=== PATIENT | male | born 1975 | race Caucasian/White ===

== ENCOUNTER 2016-10-29 10:42 | Inpatient (IN) | payer BC ==
[2016-10-24 17:12] LABS: BASOPHILS 0.8 %; BASOPHILS ABSOLUTE 0.05 10/3/uL (0.0-0.16); EOSINOPHILS 5.5 %; EOSINOPHILS ABSOLUTE 0.36 10/3/uL (0.0-0.53); HEMATOCRIT 43.7 % (40.0-51.0); HEMOGLOBIN 15.1 g/dL (13.6-17.8); IMMATURE GRANULOCYTES 0.2 %; IMMATURE GRANULOCYTES ABSOLUTE 0.01 10/3/uL (0.0-0.11); LYMPHOCYTES 28.5 %; LYMPHOCYTES ABSOLUTE 1.86 10/3/uL (0.67-4.30); MEAN CORPUS HGB CONC 34.6 g/dL (32.0-36.0); MEAN CORPUSCULAR HEMOGLOB 32.6 pg (26.0-34.0); MEAN CORPUSCULAR VOLUME 94.4 fL (80-100); MEAN PLATELET VOLUME 10.3 fL (9.2-13.0); MONOCYTES ABSOLUTE 0.39 10/3/uL (0.21-1.20); NEUTROPHILS ABSOLUTE 3.86 10/3/uL (2.02-8.40); PLATELET COUNT 221 10/3/uL (150-400); RBC DISTRIBUTION WIDTH 12.1 % (12.0-16.0); RED CELL COUNT 4.63 10/6/uL (4.7-6.1); WHITE BLOOD CELLS 6.5 10/3/uL (4.5-10.5)
[2016-10-24 17:15] LABS: MANUAL DIFF NO %
[2016-10-24 17:36] LABS: A/G RATIO 1.9 (0.7-1.9); ALBUMIN 4.4 G/DL (3.5-5.0); ALKALINE PHOSPHATASE 61 U/L (45-117); BUN (BLOOD UREA NITROGEN) 12 MG/DL (6-23); CALCIUM, SERUM 9.4 MG/DL (8.5-10.4); CHLORIDE, SERUM 106 MMOL/L (96-112); CO2 (CARBON DIOXIDE) 34 MMOL/L (24-34); CREATININE 0.94 MG/DL (0.70-1.30); GFR AFRICAN AMERICAN 115 ML/MIN (>=60); GFR NON AFRICAN AMERICAN 100 ML/MIN (>=60); GLOBULIN 2.3 G/DL (2.5-4.1); GLUCOSE, SERUM 103 MG/DL (60-99); SGOT(AST) 32 U/L (5-40); SGPT(ALT) 35 U/L (5-65); SODIUM, SERUM 145 MMOL/L (135-148); TOTAL BILIRUBIN 0.3 MG/DL (0-1.2); TOTAL PROTEIN 6.7 G/DL (6.0-8.5)
[2016-10-24 19:06] LABS: ASCORBIC ACID (UR NOT ORDER) NEG (NEG); BILIRUBIN, URINE NEGATIVE (NEG); KETONE, URINE NEGATIVE (NEG); LEUKOCYTE ESTERASE(NOT OR NEG (NEG); WBC (NOT ORDERED) (RFLEX) < 1 (0-5)
--- NOTE | ~2016-10-29 | OP ---
Record Of Operation [facility] [address] [place]. [address] NAME: THAI FREEMAN : 73 STATUS : ADM IN PAT#: [id number] AGE: 41 ADM/REG DATE : 10/29/16 MR#: [id number] REPORT SERV DATE: 10/29/16 DICTATED BY: JOSE CASTRO III DATE: 10/29/16 REPORT STATUS : Draft TRANSCRIBED BY: MODL DATE: 10/29/16 DATE OF PROCEDURE: 10/29/2016 PREOPERATIVE DIAGNOSIS: Advanced osteoarthritis, left knee. POSTOPERATIVE DIAGNOSIS: Advanced osteoarthritis, left knee. SURGICAL PROCEDURE PERFORMED: Left total knee arthroplasty using the DePuy Attune system with a size 5 femoral component, size 5 tibial tray, a +5 polyethylene insert, a 35 mm patella, posterior stabilized. SURGEON: Jose Castro M.D. STUMMEL SELECTOR: Senthil. ANESTHESIA: General. ANTIBIOTICS: Vancomycin 1 g and gentamicin 320 mg. DRAINS: Hemovac x1. FLUIDS: Crystalloids 500 mL. ESTIMATED BLOOD LOSS: 150 mL. TOURNIQUET TIME: 42 minutes. COMPLICATIONS: None. Tranexamic acid 2 g. PROCEDURE IN DETAIL: The patient was brought to the operative room, placed on the table in supine position and general anesthesia was induced. Antibiotics were administered intravenously in the operating room. Pneumatic tourniquet was applied to the left upper thigh. Left lower extremity was prepped and draped in the usual sterile fashion, and after a surgical time-out, it was exsanguinated with a 6-inch Esmarch and tourniquet was inflated to 350 mmHg. Assuring anesthesia, a standard midline incision was made directly over the left knee followed by a medial arthrotomy. The patella was everted and the knee was flexed to 90 degrees. Medial and lateral menisci were debrided along the anterior cruciate ligament. A 5-mm step drill was used to enter the femoral canal and the intramedullary guide was placed on 5 degrees valgus for left knee. This was pinned to distal femur and the intramedullary guide was removed. Distal femoral cut was made with the oscillating saw removing 9 mm of distal femur. The distal femur was trialed to a size 5 femoral component, marked along the epicondylar axis. Multi-cutting guide was placed in these angulo, pinned to the distal femur. The anterior and posterior cuts were made along with the angled chamfer cuts. The intercondylar cutting guide was next centered and pinned to the distal femur. A Record Of Operation [place] [address] [place]. [address] NAME: THAI FREEMAN : 73 STATUS : ADM IN PAT#: [id number] AGE: 41 ADM/REG DATE : 10/29/16 MR#: [id number] REPORT SERV DATE: 10/29/16 DICTATED BY: JOSE CASTRO III DATE: 10/29/16 REPORT STATUS : Draft TRANSCRIBED BY: MODL DATE: 10/29/16 reciprocating saw was used to make this cut with the posterior stabilized system. Trial reduction was carried out noting good cuts in all planes. Attention was turned towards the tibial side. The external tibial cutting guide was aligned with the second metatarsal ray and pinned to the proximal tibia. Oscillating saw was used to make this cut with a neutral degree cutting block. Trial reduction was carried out with a size 5 tibial baseplate and a +5 polyethylene insert. Relaxation of the deep medial collateral ligament was carried out for ligamentous balancing purposes. The undersurface of the patella was prepared by transecting 9 to 10 mm of bone. A 35 mm patellar template was used to place three anchor holes in the undersurface of the patella. The tibia was prepared with a drill and a punch. The old graft material was removed from his previous ACL surgery. The medial tibial plateau was drilled with a small drill because it was a hard bone. Two packs of methylmethacrylate were vacuum mixed, pressurized in the good dry cancellous bone. The real components were placed. Excess cement was removed. Tourniquet was released after 42 minutes. Bleeding was controlled with Bovie electrocautery. Thorough irrigation was carried out throughout the procedure pulse lavage system. One medium-sized Hemovac drain was placed to the wound. Medial arthrotomy was closed with #2 Ethibond suture and #1 Vicryl suture in 90 degree flexed position. Subcutaneous tissue was closed with 2-0 Vicryl and skin was closed using running 4-0 Monocryl. Benzoin and Steri-Strips were applied, followed by an Aquacel dressing. The patient tolerated the procedure well and brought to recovery room in satisfactory condition. TB/BRITNEYL Jose Castro III, M.D. / [id number] CC: Jose Castro III, M.D.
--- NOTE | ~2016-10-29 | HP ---
History And Physical [address] [address] NAME: THAI FREEMAN : 73 STATUS : ADM IN PAT#: [id number] AGE: 41 ADM/REG DATE : 10/29/16 MR#: [id number] REPORT SERV DATE: 10/29/16 DICTATED BY: JOSE CASTRO III DATE: 10/29/16 REPORT STATUS : Draft TRANSCRIBED BY: MODL DATE: 10/29/16 DATE OF ADMISSION: 10/29/2016 CHIEF COMPLAINT: Left knee pain. HISTORY: The patient is a 41-year-old white male who has had multiple left knee surgeries including two ACL reconstructions, the last one done on 08/16/2014, who has had persistent pain in his left knee. His original ACL surgery was with a bone patella tendon allograft on 03/13/[address] Zelalem Wolff. He also had meniscal surgery as well. He has had several cortisone injections as well as five Synvisc injections, all without significant relief of his pain to his left knee. X-rays reveals degenerative changes of his left knee with bone tunnels consistent with ACL reconstruction and he is admitted for left total knee arthroplasty. Risks, benefits, and expected outcomes have been explained, but not limited to blood clots, infection, neurovascular injuries, patella maltracking problems, and component failures. PAST MEDICAL HISTORY: Negative for high blood pressure; diabetes; liver, lung, or kidney problems. PAST SURGICAL HISTORY: Previous surgeries include three ACL surgeries to his left knee and left knee arthroscopy. MEDICATIONS: Include [id number]-[id number] anti-inflammatories as tolerated. ALLERGIES: PENICILLIN AND SOME NONSTEROIDAL ANTI-INFLAMMATORIES. SOCIAL HISTORY: Nonsmoker and nondrinker. PHYSICAL EXAMINATION: GENERAL: He is alert and oriented x3. VITAL SIGNS: Stable. HEENT: Normocephalic and atraumatic. Pupils are equal, round, and reactive to light and accommodation. Extraocular muscles are intact. NECK: Supple. CHEST: Clear. HEART: Regular rate and rhythm without murmur. ABDOMEN: Benign, soft, and nontender. Positive bowel sounds. ORTHOPEDIC: Reveals good range of motion 0-140 degrees. He is tender to the medial femoral condyle and the medial joint line, particularly in flexion past 20 degrees. He has negative Marcie's and mild glide. He has some tenderness with valgus stress, 1+ varus and valgus stress. Nontender to the patellofemoral joint. DIAGNOSTIC DATA: X-rays reveal some medial compartment osteoarthritis with ACL tunnels consistent with reconstruction. MRI done on 07/06/2016 reveals focal full thickness cartilage loss, central weightbearing surface of the medial femoral condyle, and moderate reactive subchondral bone marrow edema with an intact ACL graft. History And Physical [address] [address] NAME: THAI FREEMAN : 73 STATUS : ADM IN [facility]#: [id number] AGE: 41 ADM/REG DATE : 10/29/16 MR#: [id number] REPORT SERV DATE: 10/29/16 DICTATED BY: JOSE CASTRO III DATE: 10/29/16 REPORT STATUS : Draft TRANSCRIBED BY: FAITH DATE: 10/29/16 PLAN: Admission for left total knee arthroplasty. TB/FAITH Jose Castro III, M.D. / [id number] CC: Jose Castro III, M.D.
[~2016-10-29 10:42] MED LIST: ASAEC PO; FIORINALC PO; NORCO1 TA1 PO; ULTRAM50 PO; ZANTAC 150 PO
[2016-10-30 04:23] LABS: HEMATOCRIT 36.1 % (40.0-51.0); HEMOGLOBIN 12.5 g/dL (13.6-17.8)
[2016-10-30] MEDS ORDERED: PERCOCET 10/3251 TAB PO (14:50)
[2016-10-30] MEDS ORDERED: ELIQUIS 2.5 MG2.5 MG PO (14:50)
[2016-11-28] MEDS ORDERED: ASAB PO (10:23)
== END 2016-10-30 16:49 | disposition home or self-care (01) | DRG 470 ==
LOC: SDC/OF 10:42 → PACU 15:13 → 3JRC 16:13
PROVIDERS: Orthopaedic Surgery
PROC: 3E0T3CZ (ICD-10-PCS; 2016-10-29)
PROC: 0SRD0J9 Replacement of Left Knee Joint with Synthetic Substitute, Cemented, Open Approach (ICD-10-PCS; principal; 2016-10-29 12:30)
DX: M17.12 Unilateral primary osteoarthritis, left knee (principal)
CPT/HCPCS: 36415; 80053; 81001; 85014; 85018; 85025; 85610; 85730; 86850; 86900; 86901; 87641; 88305; 88311; 93005; 97110-GP; 97116-GP; 97161-GP; 97165-GO; A9270-GY; C1776; J1170; J1580; J1885; J2250; J2270; J2405; J2710; J2795; J3010; J3370

== ENCOUNTER 2016-11-08 17:10 | Observation (INO) | payer BC ==
--- NOTE | ~2016-11-08 | HP ---
History And Physical [place] [address] [facility] [place]. [address] NAME: THAI FREEMAN : 73 STATUS : ADM IN [facility]#: [id number] AGE: 41 ADM/REG DATE : 11/08/16 MR#: [id number] REPORT SERV DATE: 11/09/16 DICTATED BY: JOSE CASTRO III DATE: 11/09/16 REPORT STATUS : Draft TRANSCRIBED BY: MODKyrie DATE: 11/09/16 DATE OF ADMISSION: 11/08/2016 23-HOUR OBSERVATION CHIEF COMPLAINT: Left knee pain. HISTORY: The patient is a 41-year-old white male, who previously underwent a left total knee arthroplasty here at [facility] on 10/29/2016 with a nice result. He was doing well until he presented to the office on 11/08/2016 in severe pain with his left knee. He was noted to have a large hematoma in his left knee and he has been on anticoagulation Eliquis 2.5 mg twice a day. The patient did initially have a drain at the initial procedure. He is now admitted for incision and drainage of the left hematoma. PAST MEDICAL HISTORY: Negative for high blood pressure, diabetes, liver, lung, or kidney problems. PREVIOUS SURGERIES: Include multiple left knee surgeries including three ACL surgeries and left total knee arthroplasty on 10/29/2016. ALLERGIES: PENICILLIN. MEDICATIONS: Please see the MAR. PHYSICAL EXAMINATION: GENERAL: He is alert and oriented x3. VITAL SIGNS: Stable. HEENT: Normocephalic, atraumatic. Pupils are equal, round, and reactive to light and accommodation. Extraocular muscles are intact. NECK: Supple. CHEST: Clear. HEART: Regular rate and rhythm. ABDOMEN: Benign, soft, nontender. Positive bowel sounds. ORTHOPEDIC: Examination reveals marked tenderness to his left knee. There is no erythema, no warmth. There is a large effusion to his left knee. He has restricted range of motion 0 to 40 degrees. There are no signs of infection. A needle aspirational was attempted, but no fluid was removed secondary to clotted blood. ASSESSMENT: Hematoma of the left knee following total knee arthroplasty. PLAN: Incision and drainage of hematoma of the left knee. JAMIE/FAITH History And Physical [place] [address] [place]. [address] NAME: THAI FREEMAN : 73 STATUS : ADM IN PAT#: [id number] AGE: 41 ADM/REG DATE : 11/08/16 MR#: [id number] REPORT SERV DATE: 11/09/16 DICTATED BY: JOSE CASTRO III DATE: 11/09/16 REPORT STATUS : Draft TRANSCRIBED BY: MODL DATE: 11/09/16 Jose Castro III, M.D. / [id number] CC: RYAN ROE
--- NOTE | ~2016-11-08 | OP ---
Record Of Operation [facility] [address] [place]. [address] NAME: THAI FREEMAN : 73 STATUS : ADM IN PAT#: [id number] AGE: 41 ADM/REG DATE : 11/08/16 MR#: [id number] REPORT SERV DATE: 11/09/16 DICTATED BY: JOSE CASTRO III DATE: 11/09/16 REPORT STATUS : Draft TRANSCRIBED BY: MODL DATE: 11/09/16 DATE OF PROCEDURE: 11/09/2016 PREOPERATIVE DIAGNOSIS: Hematoma, following left total knee arthroplasty. POSTOPERATIVE DIAGNOSIS: Hematoma, following left total knee arthroplasty. SURGICAL PROCEDURE PERFORMED: Incision and drainage of hematoma, left knee with placement of Hemovac drain. SURGEON: Jose Castro M.D. ANESTHESIOLOGY MEDICAL DOCTOR: Coreen. ANESTHESIA: General LMA. ANTIBIOTICS: Ancef 2 g. COMPLICATIONS: None. TOURNIQUET TIME: 8 minutes. PROCEDURE IN DETAIL: The patient was brought to the operative room, placed on the table in supine position, and general anesthesia was induced with an LMA. Pneumonic tourniquet was applied to the left upper thigh. Left lower extremity was prepped and draped in the usual sterile fashion. Assuring good anesthesia and after occult time-out by the circulating nurse, it was exsanguinated and tourniquet was inflated to 300 mmHg. At this point, a small stab wound was made on the lateral side of the patella. A suction was pushed into the small arthrotomy and old clotted blood was removed approximately 120 mL to 150 mL. It was irrigated with sterile normal saline using a 3 L bag with a wand. The tourniquet was then released. There was some oozing in the joint and it continued to bleed a little bit, so a medium-sized Hemovac drain was placed in the knee. The small arthrotomy was closed with 0 Vicryl to the lateral retinaculum and 2-0 Vicryl to the subcutaneous tissue and 4-0 Monocryl for the skin. Benzoin Steri-Strips were applied, followed by sterile compressive dressings. The patient tolerated the procedure well and brought to recovery in satisfactory condition. There were no intraoperative, postoperative, or anesthetic complications. All instrument, needle, sponge, and lap counts were correct. TB/FAITH Jose Castro III, M.D. / [id number] Record Of Operation [place] [address] [place] [address] NAME: THAI FREEMAN : 73 STATUS : ADM IN PAT#: [id number] AGE: 41 ADM/REG DATE : 11/08/16 MR#: [id number] REPORT SERV DATE: 11/09/16 DICTATED BY: JOSE CASTRO III DATE: 11/09/16 REPORT STATUS : Draft TRANSCRIBED BY: FAITH DATE: 11/09/16 CC: Jennifer Miller
[~2016-11-08 17:10] MED LIST changes: +ELIQUIS 2.5 MG2.5 MG PO; +PERCOCET 10/3251 TAB PO
[2016-11-08 21:09] LABS: BASOPHILS 0.1 %; BASOPHILS ABSOLUTE 0.02 10/3/uL (0.0-0.16); EOSINOPHILS 0.3 %; EOSINOPHILS ABSOLUTE 0.04 10/3/uL (0.0-0.53); HEMATOCRIT 32.5 % (40.0-51.0); HEMOGLOBIN 10.8 g/dL (13.6-17.8); IMMATURE GRANULOCYTES 0.5 %; IMMATURE GRANULOCYTES ABSOLUTE 0.07 10/3/uL (0.0-0.11); LYMPHOCYTES 7.5 %; LYMPHOCYTES ABSOLUTE 1.03 10/3/uL (0.67-4.30); MEAN CORPUS HGB CONC 33.2 g/dL (32.0-36.0); MEAN CORPUSCULAR HEMOGLOB 31.4 pg (26.0-34.0); MEAN CORPUSCULAR VOLUME 94.5 fL (80-100); MEAN PLATELET VOLUME 9.3 fL (9.2-13.0); MONOCYTES 6.7 %; MONOCYTES ABSOLUTE 0.92 10/3/uL (0.21-1.20); NEUTROPHILS 84.9 %; NEUTROPHILS ABSOLUTE 11.66 10/3/uL (2.02-8.40)
[2016-11-08 21:10] LABS: MANUAL DIFF NO %; PLATELET COUNT 395 10/3/uL (150-400); RED CELL COUNT 3.44 10/6/uL (4.7-6.1); WHITE BLOOD CELLS 13.7 10/3/uL (4.5-10.5)
[2016-11-08 21:20] LABS: BUN (BLOOD UREA NITROGEN) 10 MG/DL (6-23); CALCIUM, SERUM 9.1 MG/DL (8.5-10.4); CHLORIDE, SERUM 100 MMOL/L (96-112); CO2 (CARBON DIOXIDE) 31 MMOL/L (24-34); CREATININE 0.86 MG/DL (0.70-1.30); GFR AFRICAN AMERICAN 124 ML/MIN (>=60); GFR NON AFRICAN AMERICAN 107 ML/MIN (>=60); POTASSIUM, SERUM 3.7 MMOL/L (3.5-5.3); SODIUM, SERUM 139 MMOL/L (135-148)
[2016-11-08 21:22] LABS: GLUCOSE, SERUM 135 MG/DL (60-99)
[2016-11-08] MEDS ORDERED: ELIQUIS 2.5 MG2.5 MG PO (22:17)
[2016-11-08] MEDS ORDERED: FIORINALC PO (22:18)
[2016-11-08] MEDS ORDERED: PERCOCET 10/3251 TAB PO (22:18)
[2016-11-08] MEDS ORDERED: DSS PO (22:19)
[2016-11-08] MEDS ORDERED: PEP20 PO (22:19)
[2016-11-08] MEDS ORDERED: ULTRAM50 PO (22:19)
[2016-11-28] MEDS ORDERED: ASAB PO (10:23)
== END 2016-11-09 16:40 | disposition home or self-care (01) ==
LOC: CDU1 17:10
PROVIDERS: Orthopaedic Surgery
PROC: 0S9D0ZZ Drainage of Left Knee Joint, Open Approach (ICD-10-PCS; principal; 2016-11-09 08:45)
DX: M96.840 Postprocedural hematoma of a musculoskeletal structure following a musculoskeletal system procedure (principal); Z96.652 Presence of left artificial knee joint; Z88.0 Allergy status to penicillin; Z88.8 Allergy status to other drugs, medicaments and biological substances; Z79.891 Long term (current) use of opiate analgesic; Z79.899 Other long term (current) drug therapy; Z98.890 Other specified postprocedural states
CPT/HCPCS: 80048; 85025; 87015; 87070; 87075; 87102; 87116; 87205; 96374; 96375; 96376; A9270-GY; G0378; J0690; J1170; J2250; J2270; J2405; J3010